=== PATIENT | female | born 1970 | race Caucasian/White ===

== ENCOUNTER 2025-03-30 19:06 | Emergency (ER) | payer OTHER ==
[~2025-03-30] VITALS: Ht 172.7 cm; Wt 85.0 kg
[2025-03-30 19:08] VITALS: O2SAT 97
[2025-03-30 21:54] VITALS: BP 131/72; PULSE 75; RESP 14; TEMP 36.9; O2SAT 100
== END 2025-03-30 21:56 | disposition home or self-care (01) ==
LOC: ER 19:06
DX: S00.03XA Contusion of scalp, initial encounter (principal); W18.39XA Other fall on same level, initial encounter; Y93.89 Activity, other specified; Y92.89 Other specified places as the place of occurrence of the external cause; Y99.8 Other external cause status
CPT/HCPCS: 99284